=== PATIENT | male | born 1975 | race American Indian/Alaskan Native ===

== ENCOUNTER 2017-01-01 01:39 | Emergency (ER) | payer OTHER ==
[2017-01-01 01:40] VITALS: BMI 36.0
[2017-01-01 01:53] VITALS: BP 141/80; PULSE 74; RESP 18; TEMP 97.9; O2SAT 100
--- NOTE | 2017-01-01 02:25 | ED PDOC ---
Arrival/HPI - General Chief Complaint: ENT Problem Time Seen by Provider: 01/01/17 02:02 Historian: Patient - History of Present Illness Narrative History of Present Illness (Text): 01/01/17 02:00 41 year old male presents to the emergency department complaining of left sided jaw pain associated with ear pain that began serval days ago. He states that the pain increases when he opens his mouth. Patient reports mouth pain, a sour taste, ear pain, and change in hearing, but denies any trauma, fever, chills, chest pain, shortness of breath, nausea, vomiting, diarrhea, urinary symptoms, back pain, neck pain, headache, dizziness, or any other complaints. Time/Duration: Other (several days) Symptom Onset: Gradual Symptom Course: Unchanged Activities at Onset: Light Context: Home Past Medical History - Provider Review Nursing Documentation Reviewed: Yes - Past Medical History Past Medical History: No Previous - Psychiatric Hx Depression: No Hx Emotional Abuse: No Hx Physical Abuse: No Hx Substance Use: No - Past Surgical History Past Surgical History: No Previous - Suicidal Assessment Feels Threatened In Home Enviroment: No Family/Social History - Physician Review Nursing Documentation Reviewed: Yes Family/Social History: No Known Family HX Smoking Status: Never Smoked Hx Alcohol Use: No Hx Substance Use: No Allergies/Home Meds Allergies/Adverse Reactions: Allergies No Known Allergies Allergy (Verified 09/22/15 00:16) Review of Systems - Physician Review All systems were reviewed & negative as marked: Yes - Review of Systems Constitutional: absent: Fevers, Other (Chills) ENT: Hearing Changes, TMJ Pain, Other (mouth pain and sour taste. ) Respiratory: absent: SOB Cardiovascular: absent: Chest Pain Gastrointestinal: absent: Diarrhea, Nausea, Vomiting Genitourinary Male: absent: Dysuria, Frequency, Hematuria Musculoskeletal: absent: Back Pain, Neck Pain Neurological: absent: Headache, Dizziness Physical Exam Vital Signs Reviewed: Yes Vital Signs Temp Pulse Resp BP Pulse Ox 01/01/17 01:50 97.9 F 74 18 141/80 100 Temperature: Afebrile Blood Pressure: Normal Pulse: Regular Respiratory Rate: Normal Appearance: Positive for: Well-Appearing, Non-Toxic, Comfortable Pain Distress: None Mental Status: Positive for: Alert and Oriented X 3 - Systems Exam Head: Present: Atraumatic, Normocephalic Pupils: Present: PERRL Extroacular Muscles: Present: EOMI Conjunctiva: Present: Normal Ears: Present: Other (Point tenderness on the left TMJ. No clicking ) Mouth: Present: Moist Mucous Membranes Neck: Present: Normal Range of Motion Respiratory/Chest: Present: Clear to Auscultation, Good Air Exchange. No: Respiratory Distress, Accessory Muscle Use Cardiovascular: Present: Regular Rate and Rhythm, Normal S1, S2. No: Murmurs Abdomen: Present: Normal Bowel Sounds. No: Tenderness, Distention, Peritoneal Signs Back: Present: Normal Inspection Upper Extremity: Present: Normal Inspection. No: Cyanosis, Edema Lower Extremity: Present: Normal Inspection. No: Edema Neurological: Present: GCS=15, CN II-XII Intact, Speech Normal Skin: Present: Warm, Dry, Normal Color. No: Rashes Psychiatric: Present: Alert, Oriented x 3, Normal Insight, Normal Concentration Medical Decision Making ED Course and Treatment: 01/01/17 02:00 Impression: 41 year old male presents complaining of left sided jaw pain associated with ear pain that began several days ago. Plan: -- Motrin tab -- Reassess and disposition Progress Notes: - Medication Orders Current Medication Orders: Discontinued Medications Ibuprofen (Motrin Tab) 600 mg PO STAT STA Stop: 01/01/17 02:06 Last Admin: 01/01/17 02:12 Dose: 600 mg MAR Pain/Vitals Document 01/01/17 02:12 JACQUIE (Rec: 01/01/17 02:13 JACQUIE [id number]) Pain Reassessment Is This A Pain ReAssessment? No Sleep Is patient sleeping during reassessment? No Presence of Pain Presence of Pain Yes Location Pain Location Body Site Ear Intensity 5 Pain Behavior Restlessness Facial Grimacing - Scribe Statement The provider has reviewed the documentation as recorded by the Scribe Jesi Browning All medical record entries made by the Alfonsoibdianna were at my direction and personally dictated by me. I have reviewed the chart and agree that the record accurately reflects my personal performance of the history, physical exam, medical decision making, and the department course for this patient. I have also personally directed, reviewed, and agree with the discharge instructions and disposition. Disposition/Present on Arrival - Present on Arrival Any Indicators Present on Arrival: No History of DVT/PE: No History of Uncontrolled Diabetes: No Urinary Catheter: No History of Decub. Ulcer: No History Surgical Site Infection Following: None - Disposition Have Diagnosis and Disposition been Completed?: Yes Diagnosis: TMJ (temporomandibular joint disorder) Disposition: HOME/ ROUTINE Disposition Time: 02:00 Condition: GOOD Discharge Instructions (ExitCare): Temporomandibular Disorder (ED) Additional Instructions: Thank you for letting us take care of you today. Your provider was Dr. Monge. You were treated for jaw pain. The emergency medical care you received today was directed at your acute symptoms. If you were prescribed any medication, please fill it and take as directed. It may take several days for your symptoms to resolve. Return to the Emergency Department if your symptoms worsen, do not improve, or if you have any other problems. Please contact your doctor or call one of the physicians/clinics you have been referred to that are listed on the Patient Visit Information form that is included in your discharge packet. Bring any paperwork you were given at discharge with you along with any medications you are taking to your follow up visit. Our treatment cannot replace ongoing medical care by a primary care provider (PCP) outside of the emergency department. Thank you for allowing the [facility] team to be part of your care today. Follow up with Dr. Abdalla or the clinic for outpatient care and further management. Prescriptions: Cyclobenzaprine [Cyclobenzaprine HCl] 10 mg PO Q8 PRN #20 tab PRN Reason: Muscle Spasm Ibuprofen [Motrin] 600 mg PO Q6 PRN #20 tab PRN Reason: Pain, Moderate (4-7) Referrals: [facility] [Outside] - Follow up with primary [facility] [place] [Outside] - Follow up with primary Corneluis Abdalla DO [Staff Provider] - Follow up with primary Forms: [email or web address] (Lithuanian)
== END 2017-01-01 02:23 | disposition home or self-care (01) ==
LOC: ED 01:39
DX: M26.602 Left temporomandibular joint disorder, unspecified (principal)

== ENCOUNTER 2017-01-01 20:51 | Emergency (ER) | payer OTHER ==
[2017-01-01 20:51] VITALS: BMI 36.0
[2017-01-01 20:56] VITALS: BP 131/79; PULSE 78; RESP 17; TEMP 98.2; O2SAT 96
[2017-01-01] MEDS ORDERED: RABIES VACCINE 2.5 U PDR IM ONE (21:09)
[2017-01-01] MEDS ORDERED: Rabies Immune Globulin 150 INTLU/ML VIAL IM ONE (21:10)
[2017-01-01] MEDS ORDERED: TDAP Vaccine 0.5 mL Syr IM ONE (21:11)
[2017-01-01] MEDS ORDERED: Amoxicillin-Clav 875-125 mg Tab PO STA (21:11)
--- NOTE | 2017-01-01 21:18 | ED PDOC ---
Arrival/HPI - General Chief Complaint: Bite Time Seen by Provider: 01/01/17 20:52 Historian: Patient - History of Present Illness Narrative History of Present Illness (Text): 01/01/17 21:14 41-year-old male presents today with a dog bite to the right medial thigh. 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 Patient states the incident occurred around 12:30 today. Patient denies pain. Denies fevers or chills. Patient presents today for tetanus and rabies vaccine. Patient states he does not trust the process owner of the dog and he wants the rabies vaccine regardless. Patient denies numbness weakness or tingling. No chest pain or shortness of breath. No other complaints Time/Duration: Other (12:30 this afternoon) Symptom Onset: Sudden Symptom Course: Resolved Past Medical History - Provider Review Nursing Documentation Reviewed: Yes - Travel History Have you recently traveled outside [place] w/in the past 3 mons?: No - Infectious Disease Hx of Infectious Diseases: None - Tetanus Immunization Tetanus Immunization: Unknown - Past Medical History Past Medical History: No Previous - Psychiatric Hx Depression: No Hx Emotional Abuse: No Hx Physical Abuse: No Hx Substance Use: No - Past Surgical History Past Surgical History: No Previous - Anesthesia Hx Anesthesia: No - Suicidal Assessment Feels Threatened In Home Enviroment: No Family/Social History - Physician Review Nursing Documentation Reviewed: Yes Family/Social History: Unknown Family HX Smoking Status: Never Smoked Hx Alcohol Use: No Hx Substance Use: No Allergies/Home Meds Allergies/Adverse Reactions: Allergies No Known Allergies Allergy (Verified 01/01/17 20:53) Review of Systems - Review of Systems Constitutional: absent: Fatigue, Fevers Respiratory: absent: SOB, Cough Cardiovascular: absent: Chest Pain, Palpitations Gastrointestinal: absent: Abdominal Pain, Nausea, Vomiting Genitourinary Male: absent: Dysuria Musculoskeletal: absent: Arthralgias Skin: Other (Dog bite) Neurological: absent: Headache, Dizziness Psychiatric: absent: Anxiety, Depression Physical Exam Vital Signs Reviewed: Yes Vital Signs Temp Pulse Resp BP Pulse Ox 01/01/17 20:55 98.2 F 78 17 131/79 96 Temperature: Afebrile Blood Pressure: Normal Pulse: Regular Respiratory Rate: Normal Appearance: Positive for: Well-Appearing, Non-Toxic, Comfortable Pain Distress: None Mental Status: Positive for: Alert and Oriented X 3 - Systems Exam Head: Present: Atraumatic Neck: Present: Normal Range of Motion Respiratory/Chest: Present: Clear to Auscultation Cardiovascular: Present: Regular Rate and Rhythm Upper Extremity: Present: Normal Inspection Lower Extremity: Present: NORMAL PULSES, Normal ROM, Neurovascularly Intact, Capillary Refill < 2 s, Other (right distal medial thigh; there are 3 small abrasions noted to the medial thigh; no surrounding erythema; no edema, no ecchymosis; non tender. full rom of leg; ambulates with steady gait. ). No: Tenderness, Swelling, Erythema, Deformity Neurological: Present: GCS=15, Speech Normal Skin: Present: Warm, Dry Psychiatric: Present: Alert, Oriented x 3 Medical Decision Making ED Course and Treatment: 01/01/17 21:18 Patient is nontoxic well-appearing in no distress. Vital signs are stable. Patient states that he does not trust the process owner of the dog. And wants to have rabies vaccine. I've advised the patient that he has 3 days to verify the immunization status of the dog but the patient states that he would prefer just to have the rabies treatment. I've advised the patient that he will have multiple shots today and needs to return for continuation of the rabies dosing schedule. Patient agrees to the rabies vaccine. Tetanus updated Wound irrigated well with copious amounts of high-pressure irrigation using normal saline Augmentin 875 mg p.o. Patient was advised to keep the wound clean and dry, apply bacitracin twice daily, take antibiotics as prescribed. Patient was advised to return on day 3, day 7 and day 14 for continuation of the rabies vaccine. Patient was advised to return immediately if symptoms worsen persist or if new symptoms develop Patient verbalizes understanding of discharge instructions and need for immediate followup. all aspects of this case were discussed the attending of record. Impression: Dog bite, leg Motrin every 6 hours as needed for pain Return on day 3 (, Day 7 (jan 08), and day 14 (jan 15) for continuation of the rabies vaccine Augmentin: Twice daily x10 days Keep the wound clean and dry, apply bacitracin twice daily Return immediately if symptoms worsen persist or if new symptoms develop: High fevers, increasing pain, increasing redness, swelling or if any other concerning symptoms develop. - Medication Orders Current Medication Orders: Discontinued Medications Amoxicillin/Clavulanate Potassium (Augmentin 875 Mg-125 Mg Tab) 1 tab PO STAT STA PRN Reason: Protocol Stop: 01/01/17 21:12 Last Admin: 01/01/17 21:46 Dose: 1 tab Rabies Immune Globulin (Imogam) 1,950 intlu IM .ONCE ONE Stop: 01/01/17 21:11 Last Admin: 01/01/17 21:43 Dose: 1,950 intlu IM Administration Charges Document 01/01/17 21:43 HI (Rec: 01/01/17 21:49 [place] [facility] [id number][place] Charges for Administration # of IM Administrations 1 JUN Immunization Data Document 01/01/17 21:43 HI (Rec: 01/01/17 21:49 HI [facility] [id number][place] Immunization Data Vaccine Lot Number [id number] Vaccine Expiration Date 11/01/18 Site Given Right Anterolateral Thigh Route Intramuscular Rabies Vaccine Human Diploid Cell (Rabavert Vaccine Inj) 2.5 u IM .ONCE ONE Stop: 01/01/17 21:10 Last Admin: 01/01/17 21:47 Dose: 2.5 u [facility] Immunization Data Document 01/01/17 21:47 HI (Rec: 01/01/17 21:48 HI [facility] [id number]) Immunization Data Vaccine Lot Number [id number] Vaccine Expiration Date 09/09/19 Site Given Right Deltoid Route Intramuscular Tetanus/Reduced Diphtheria/Acell Pertussis (Boostrix Vaccine Inj) 0.5 ml IM .ONCE ONE Stop: 01/01/17 21:12 Last Admin: 01/01/17 21:45 Dose: 0.5 ml JUN Immunization Data Document 01/01/17 21:45 HI (Rec: 01/01/17 21:45 HI [facility] [id number]) Immunization Data Vaccine Lot Number [id number] Site Given Right Deltoid Route Intramuscular Disposition/Present on Arrival - Present on Arrival Any Indicators Present on Arrival: No History of DVT/PE: No History of Uncontrolled Diabetes: No Urinary Catheter: No History of Decub. Ulcer: No History Surgical Site Infection Following: None - Disposition Have Diagnosis and Disposition been Completed?: Yes Diagnosis: Dog bite Disposition: HOME/ ROUTINE Disposition Time: 21:28 Patient Plan: Discharge Condition: GOOD Discharge Instructions (ExitCare): Animal Bite (ED) Additional Instructions: Motrin every 6 hours as needed for pain Return on day 3 (, Day 7 (jan 08), and day 14 (jan 15) for continuation of the rabies vaccine Augmentin: Twice daily x10 days Keep the wound clean and dry, apply bacitracin twice daily Return immediately if symptoms worsen persist or if new symptoms develop: High fevers, increasing pain, increasing redness, swelling or if any other concerning symptoms develop. Prescriptions: Amoxicillin/Clavulanate [Augmentin 875 MG-125 MG] 1 tab PO BID #20 tab Bacitracin OINT 1 applic TP BID #1 tube Referrals: Dino Wilkerson MD [Staff Provider] - Follow up with primary Forms: [employer] (Maltese), WORK NOTE
== END 2017-01-01 22:16 | disposition home or self-care (01) ==
LOC: ED 20:51
DX: S71.151A Open bite, right thigh, initial encounter (principal); W54.0XXA Bitten by dog, initial encounter; Y93.89 Activity, other specified; Y92.89 Other specified places as the place of occurrence of the external cause; Y99.8 Other external cause status

== ENCOUNTER 2017-01-04 21:22 | Emergency (ER) | payer OTHER ==
[2017-01-04 22:27] VITALS: BP 126/69; PULSE 74; TEMP 98.2; O2SAT 99; BMI 33.3
[2017-01-04] MEDS ORDERED: RABIES VACCINE 2.5 U PDR IM ONE (23:23)
--- NOTE | 2017-01-04 23:26 | ED PDOC ---
Arrival/HPI - General Chief Complaint: Rabies Vaccine Series Time Seen by Provider: 01/04/17 22:23 Historian: Patient - History of Present Illness Narrative History of Present Illness (Text): 01/05/17 00:41 41 yo M presents to the emergency room for day 3 rabies vaccination. States that he was bit by a dog to the posterior R knee 3 days ago and was seen and treated here, was advised to return to the emergency room for rabies vaccination. Otherwise denies any fever, chills, redness, swelling. Reports no other complaints. Past Medical History - Provider Review Nursing Documentation Reviewed: Yes - Infectious Disease Hx of Infectious Diseases: None - Tetanus Immunization Tetanus Immunization: Unknown - Past Medical History Past Medical History: No Previous - Psychiatric Hx Depression: No Hx Emotional Abuse: No Hx Physical Abuse: No Hx Substance Use: No - Past Surgical History Past Surgical History: No Previous - Anesthesia Hx Anesthesia: No Hx Anesthesia Reactions: No Hx Malignant Hyperthermia: No - Suicidal Assessment Feels Threatened In Home Enviroment: No Family/Social History - Physician Review Nursing Documentation Reviewed: Yes Family/Social History: No Known Family HX Smoking Status: Never Smoked Hx Alcohol Use: No Hx Substance Use: No Allergies/Home Meds Allergies/Adverse Reactions: Allergies No Known Allergies Allergy (Verified 01/04/17 22:27) Review of Systems - Review of Systems Constitutional: Normal. absent: Fatigue, Weight Change, Fevers Musculoskeletal: Normal. absent: Arthralgias, Back Pain, Neck Pain Skin: Normal, Other (dog bite). absent: Rash, Pruritis, Skin Lesions Physical Exam Vital Signs Temp Pulse BP Pulse Ox 01/04/17 22:25 98.2 F 74 126/69 99 Temperature: Afebrile Blood Pressure: Normal Pulse: Regular Respiratory Rate: Normal Appearance: Positive for: Well-Appearing, Non-Toxic, Comfortable Pain Distress: None Mental Status: Positive for: Alert and Oriented X 3 - Systems Exam Lower Extremity: Present: NORMAL PULSES, Normal ROM, Neurovascularly Intact, Capillary Refill < 2 s, Other (healing dog bite to the posterior R knee with no evidence of infection, no erythema, no edema, no d/c). No: Edema, Tenderness, Swelling, Erythema, Deformity, Temperature Abnormalties Neurological: Present: GCS=15, CN II-XII Intact, Motor Func Grossly Intact, Normal Sensory Function Skin: Present: Warm, Dry, Normal Color. No: Rashes Medical Decision Making ED Course and Treatment: 01/05/17 00:47 41 yo M presents to the emergency room for day 3 rabies vaccination. Patient given Day 3 rabies vaccination. Advised to continue to keep the wound clean and dry. Instructed to return to the ER on day 7 and day 14 to finish the rabies vaccination. - Medication Orders Current Medication Orders: Discontinued Medications Rabies Vaccine Human Diploid Cell (Rabavert Vaccine Inj) 2.5 u IM .ONCE ONE Stop: 01/04/17 23:24 Last Admin: 01/04/17 23:44 Dose: 2.5 u MAR Immunization Data Document 01/04/17 23:44 OCS (Rec: 01/04/17 23:45 OCS [id number]) Immunization Data Vaccine Lot Number [id number] Vaccine Expiration Date 01/04/17 - PA / VERIFYING SPECIALIST / Resident Statement / has reviewed & agrees with the documentation as recorded. Disposition/Present on Arrival - Present on Arrival Any Indicators Present on Arrival: No History of DVT/PE: No History of Uncontrolled Diabetes: No Urinary Catheter: No History of Decub. Ulcer: No History Surgical Site Infection Following: None - Disposition Have Diagnosis and Disposition been Completed?: Yes Diagnosis: Need for rabies vaccination Disposition: HOME/ ROUTINE Disposition Time: 23:15 Patient Plan: Discharge Condition: STABLE Discharge Instructions (ExitCare): Rabies Vaccine (ED) Print Language: [place] CITIZEN Additional Instructions: Return for Day 7 vaccine 01/08/17 and for Day 14 vaccine 01/15/17 Referrals: Maria Elena Baig, [Primary Care Provider] - Follow up with primary Forms: [employer] (Syriac)
== END 2017-01-04 23:46 | disposition home or self-care (01) ==
LOC: ED 21:22
DX: Z23 Encounter for immunization (principal)

== ENCOUNTER 2017-01-08 21:45 | Emergency (ER) | payer OTHER ==
[2017-01-08 21:57] VITALS: RESP 16; TEMP 98.1; O2SAT 98; BMI 33.6
[2017-01-08 22:00] VITALS: BP 125/78; PULSE 76
--- NOTE | 2017-01-08 22:02 | ED PDOC ---
Arrival/HPI - General Chief Complaint: Rabies Vaccine Series Time Seen by Provider: 01/08/17 22:02 Historian: Patient - History of Present Illness Narrative History of Present Illness (Text): 01/08/17 22:02 This 41 yo male presents to this emergency department for his 3 rabies shot ( day 7). Patient stated he was bitten on his right posterior thigh x 7 days ago. Patient stated he has been taking his ABX, and wound is healing well. Denies other complains. Time/Duration: 1 week Symptom Course: Improving Past Medical History - Provider Review Nursing Documentation Reviewed: Yes - Infectious Disease Hx of Infectious Diseases: None - Tetanus Immunization Tetanus Immunization: Unknown - Past Medical History Past Medical History: No Previous - Cardiac Hx Cardiac Disorders: No - Pulmonary Hx Respiratory Disorders: No - Neurological Hx Neurological Disorder: No - HEENT Hx HEENT Disorder: No - Renal Hx Renal Disorder: No - Endocrine/Metabolic Hx Endocrine Disorders: No - Hematological/Oncological Hx Blood Disorders: No - Integumentary Hx Dermatological Disorder: No - Musculoskeletal/Rheumatological Hx Musculoskeletal Disorders: No - Gastrointestinal Hx Gastrointestinal Disorders: No - Genitourinary/Gynecological Hx Genitourinary Disorders: No - Psychiatric Hx Depression: No Hx Emotional Abuse: No Hx Physical Abuse: No Hx Substance Use: No - Past Surgical History Past Surgical History: No Previous - Anesthesia Hx Anesthesia: No Hx Anesthesia Reactions: No Hx Malignant Hyperthermia: No - Suicidal Assessment Feels Threatened In Home Enviroment: No Family/Social History - Physician Review Nursing Documentation Reviewed: Yes Family/Social History: Other (non-contributory) Smoking Status: Never Smoked Hx Alcohol Use: No Hx Substance Use: No Allergies/Home Meds Allergies/Adverse Reactions: Allergies No Known Allergies Allergy (Verified 01/08/17 21:57) Review of Systems - Review of Systems Constitutional: Normal. absent: Fatigue, Weight Change, Fevers Eyes: Normal ENT: Normal Respiratory: Normal Cardiovascular: Normal Gastrointestinal: Normal Genitourinary Male: Normal Musculoskeletal: Normal Skin: Normal, Other (see hpi) Neurological: Normal Endocrine: Normal Hemo/Lymphatic: Normal Psychiatric: Normal Physical Exam Vital Signs Temp Pulse Resp BP Pulse Ox 01/08/17 21:58 98.1 F 76 16 125/78 98 01/08/17 21:57 98.1 F 72 16 125/78 98 Temperature: Afebrile Blood Pressure: Normal Pulse: Regular Respiratory Rate: Normal Appearance: Positive for: Well-Appearing, Non-Toxic, Comfortable Pain Distress: None Mental Status: Positive for: Alert and Oriented X 3 - Systems Exam Head: Present: Atraumatic, Normocephalic Pupils: Present: PERRL Extroacular Muscles: Present: EOMI Conjunctiva: Present: Normal Mouth: Present: Moist Mucous Membranes Upper Extremity: Present: Normal Inspection, Normal ROM Lower Extremity: Present: Normal Inspection, Normal ROM Neurological: Present: GCS=15, CN II-XII Intact, Speech Normal, Motor Func Grossly Intact, Normal Sensory Function, Normal Cerebellar Funct, Gait Normal Skin: Present: Warm, Dry, Normal Color. No: Rashes Psychiatric: Present: Alert, Oriented x 3, Normal Insight, Normal Concentration Medical Decision Making ED Course and Treatment: 01/08/17 22:27 Patient is resting comfortably, and is in no acute distress. Patient was instructed to follow up with PMD in 1-2 days for further evaluation. Re-evaluation Time: 22:27 Reassessment Condition: Re-examined, Improved Disposition/Present on Arrival - Present on Arrival Any Indicators Present on Arrival: No History of DVT/PE: No History of Uncontrolled Diabetes: No Urinary Catheter: No History of Decub. Ulcer: No History Surgical Site Infection Following: None - Disposition Have Diagnosis and Disposition been Completed?: Yes Diagnosis: Need for rabies vaccination Disposition: HOME/ ROUTINE Disposition Time: 22:30 Patient Plan: Discharge Condition: GOOD Discharge Instructions (ExitCare): Rabies Vaccine (By injection) Additional Instructions: You need to return in 7 days from now to get last Rabies shot on January 15. Referrals: Maria Elena Baig, [Primary Care Provider] - Follow up with primary [facility] [Outside] - Follow up with primary [facility] [Outside] - Follow up with primary Forms: [employer] (Slovenian)
[2017-01-08] MEDS ORDERED: Rabies Vaccine 2.5 U VIAL IM ONE (22:18)
== END 2017-01-08 23:02 | disposition home or self-care (01) ==
LOC: ED 21:45
DX: Z23 Encounter for immunization (principal)

== ENCOUNTER 2017-01-15 21:28 | Emergency (ER) | payer OTHER ==
[2017-01-15 21:38] VITALS: BP 129/79; RESP 17; TEMP 98; BMI 33.0
[2017-01-15 21:39] VITALS: PULSE 77; O2SAT 99
[2017-01-15] MEDS ORDERED: Rabies Vaccine 2.5 U VIAL IM ONE (21:54)
--- NOTE | 2017-01-15 21:54 | ED PDOC ---
Arrival/HPI - General Historian: Patient <Alfreda Samuels PA-C - Last Filed: 01/15/17 21:55> <Hernando Almanza - Last Filed: 01/15/17 22:07> - General Chief Complaint: Rabies Vaccine Series Time Seen by Provider: 01/15/17 21:47 - History of Present Illness Narrative History of Present Illness (Text): 01/15/17 21:52 41 yo M presents to the emergency room for day 14 rabies vaccination. Otherwise denies any fever, chills, redness, swelling. Reports no other complaints. (Alfreda Samuels PA-C) Past Medical History - Provider Review Nursing Documentation Reviewed: Yes - Infectious Disease Hx of Infectious Diseases: None - Tetanus Immunization Tetanus Immunization: Unknown - Past Medical History Past Medical History: No Previous - Cardiac Hx Cardiac Disorders: No - Pulmonary Hx Respiratory Disorders: No - Neurological Hx Neurological Disorder: No - HEENT Hx HEENT Disorder: No - Renal Hx Renal Disorder: No - Endocrine/Metabolic Hx Endocrine Disorders: No - Hematological/Oncological Hx Blood Disorders: No - Integumentary Hx Dermatological Disorder: No - Musculoskeletal/Rheumatological Hx Musculoskeletal Disorders: No - Gastrointestinal Hx Gastrointestinal Disorders: No - Genitourinary/Gynecological Hx Genitourinary Disorders: No - Psychiatric Hx Depression: No Hx Emotional Abuse: No Hx Physical Abuse: No Hx Substance Use: No - Past Surgical History Past Surgical History: No Previous - Anesthesia Hx Anesthesia: No Hx Anesthesia Reactions: No Hx Malignant Hyperthermia: No - Suicidal Assessment Feels Threatened In Home Enviroment: No <Alfreda Samuels PA-C - Last Filed: 01/15/17 21:55> Family/Social History - Physician Review Nursing Documentation Reviewed: Yes Family/Social History: No Known Family HX Smoking Status: Never Smoked Hx Alcohol Use: No Hx Substance Use: No <Alfreda Samuels PA-C - Last Filed: 01/15/17 21:55> Allergies/Home Meds <Alfreda Samuels PA-C - Last Filed: 01/15/17 21:55> <Hernando Almanza - Last Filed: 01/15/17 22:07> Allergies/Adverse Reactions: Allergies No Known Allergies Allergy (Verified 01/15/17 21:37) Home Medications: Home Meds Medication Instructions Recorded Confirmed No Known Home Med 01/15/17 01/15/17 Review of Systems - Review of Systems Constitutional: Normal. absent: Fatigue, Weight Change, Fevers Musculoskeletal: Normal. absent: Arthralgias, Back Pain, Neck Pain Skin: Normal, Other (h/o dog bite). absent: Rash, Pruritis, Skin Lesions <Alfreda Samuels PA-C - Last Filed: 01/15/17 21:55> Physical Exam <Alfreda Samuels PA-C - Last Filed: 01/15/17 21:55> <Hernando Almanza - Last Filed: 01/15/17 22:07> - Physical Exam Narrative Physical Exam (Text): 01/15/17 21:55 Temperature: Afebrile Blood Pressure: Normal Pulse: Regular Respiratory Rate: Normal Appearance: Positive for: Well-Appearing, Non-Toxic, Comfortable Pain Distress: None Mental Status: Positive for: Alert and Oriented X 3 - Systems Exam Lower Extremity: Present: NORMAL PULSES, Normal ROM, Neurovascularly Intact, Capillary Refill < 2 s, Other (healed dog bite to the posterior R knee with no evidence of infection, no erythema, no edema, no d/c). No: Edema, Tenderness, Swelling, Erythema, Deformity, Temperature Abnormalties Neurological: Present: GCS=15, CN II-XII Intact, Motor Func Grossly Intact, Normal Sensory Function Skin: Present: Warm, Dry, Normal Color. No: Rashes (Alfreda Samuels PA-C) Vital Signs Temp Pulse Resp BP Pulse Ox 01/15/17 21:38 98.0 F 77 17 129/79 99 01/15/17 21:37 98.0 F 73 17 129/79 98 Medical Decision Making <Alfreda Samuels PA-C - Last Filed: 01/15/17 21:55> <Hernando Almanza - Last Filed: 01/15/17 22:07> ED Course and Treatment: 01/15/17 21:52 41 yo M presents to the emergency room for day 14 rabies vaccination. Patient given day 14 rabies vaccination. (Alfreda Samuels PA-C) - Medication Orders Current Medication Orders: Discontinued Medications Rabies Vaccine Human Diploid Cell (Imovax Rabies) 2.5 u IM .ONCE ONE Stop: 01/15/17 21:55 - PA / LEAD ADVISOR / Resident Statement CRIS has reviewed & agrees with the documentation as recorded. <Alfreda Samuels PA-C - Last Filed: 01/15/17 21:55> - PA / LEAD ADVISOR / Resident Statement CRIS has reviewed & agrees with the documentation as recorded. CRIS has examined the patient and agrees with the treatment plan. <Hernando Almanza - Last Filed: 01/15/17 22:07> Disposition/Present on Arrival - Present on Arrival Any Indicators Present on Arrival: No History of DVT/PE: No History of Uncontrolled Diabetes: No Urinary Catheter: No History of Decub. Ulcer: No History Surgical Site Infection Following: None - Disposition Have Diagnosis and Disposition been Completed?: Yes Disposition Time: 21:53 Patient Plan: Discharge <Alfreda Samuels PA-C - Last Filed: 01/15/17 21:55> <Hernando Almanza - Last Filed: 01/15/17 22:07> - Disposition Diagnosis: Need for rabies vaccination Disposition: HOME/ ROUTINE Patient Problems: Current Active Problems Problem Status Onset Need for rabies vaccination Acute Condition: STABLE Discharge Instructions (ExitCare): Rabies Vaccine (By injection) Print Language: KYRGYZ Referrals: PCP,NO [Primary Care Provider] - Follow up with primary Forms: [employer] (Filipino)
== END 2017-01-15 22:11 | disposition home or self-care (01) ==
LOC: ED 21:28
DX: Z23 Encounter for immunization (principal)